=== PATIENT | female | born 1995 | race Caucasian/White ===

== ENCOUNTER 2018-05-21 07:30 | Inpatient (IN) | payer OTHER ==
[2018-05-21 08:43] VITALS: BMI 28.7
[2018-05-21] MEDS ORDERED: DINOPROSTONE 10 MG VAGINAL SUPPOSITORY VG ONE (09:00)
[2018-05-21 10:17] LABS: BASO % 0.3 % (0-2.0); EOS % 0.5 % (0-4.5); HEMATOCRIT 42.6 % (32.4-45.2); HEMOGLOBIN 14.8 GM/dL (10.7-15.3); LYMPH % 17.7 % (8-40); MCH 32.6 pg (25.7-33.7); MCHC 34.8 g/dl (32.0-36.0); MEAN CELL VOLUME 93.6 fl (80-96); MEAN PLT VOLUME 9.7 fl (7.5-11.1); MONO % 5.1 % (3.8-10.2); NEUT % 76.4 % (42.8-82.8); PLATELET COUNT 144 K/MM3 (134-434); RBC 4.55 M/mm3 (3.60-5.2); RDW 13.6 % (11.6-15.6); WHITE BLOOD COUNT 7.6 K/mm3 (4.0-10.0)
[2018-05-21 10:30] LABS: INR 0.9 (0.83-1.09); PROTHROMBIN TIME (PATIENT) 10.6 SEC (9.7-13.0)
[2018-05-21 10:32] LABS: ACTIVATED PTT 32.1 SECONDS (25.2-36.5)
[2018-05-21 10:44] LABS: ANION GAP 9 MMOL/L (8-16); BLOOD UREA NITROGEN 14 mg/dL (7-18); CALCIUM 8.8 mg/dL (8.5-10.1); CHLORIDE 105 mmol/L (98-107); CO2 21 mmol/L (21-32); CREATININE 0.6 mg/dL (0.55-1.3); GLUCOSE,RANDOM 77 mg/dL (74-106); POTASSIUM 3.8 mmol/L (3.5-5.1); SODIUM 136 mmol/L (136-145)
[2018-05-21] MEDS: DEXTROSE 5%-LACTATED RINGERS 1,000 ML IV SCH ×2 (14:30→22:30)
--- NOTE | 2018-05-21 17:48 | HP ---
Past Medical History - Primary Care Physician PCP:: Sandy Mandujano - Admission Chief Complaint: 23 yrs ga1P0, 41.2 wks admitted for induction of labor. sono ; 39 wks,SLIUP. bpp8/8 , vx, yanick 9.5, efw 8'2", fundal placenta History of Present Illness: PNC at [address] [place] [address] 34 lbs wt gain 1 st trimester, h/o pregn vomiting panel : 10/08/17 O Pos, Hbsag neg, Rpr nr, Hiv neg, rubella iimune, Varicella iimune, pap nilm, gc/ct neg , Hgb A1A2 , Sickle neg, h/h 13.8/40.3, plt 221 BV culture pos rx metrogel gel given 02/01/18 : 1 hr [id number], rpr nr, Quantiferon neg, h/h 12.8 /39.6, plt 202 04/26/18 GBS neg, Gc/ct neg, Hiv neg, h/h 13.9/41.7, [id number] serial sonogram done by [facility] for growth NT screen neg Afp neg 05/15/18 sono 40.3 wks, sliup, vx, yanick 12.9, , bpp 8/8, efw 7'9" 9 3420 gm), post placenta History Source: Patient, Medical Record - Past Medical History LPN HOME HEALTH: No: Migraine, Seizure Cardiovascular: No: HTN, Murmur Pulmonary: No: Asthma Hepatobiliary: No: Hepatitis B Renal/: No: UTI ...: 1 ...Para: 0 ...LMP: 07/29/17 ...EDC by Sono: 05/12/18 (41.2 weeks ) Heme/Onc: No: Anemia Infectious Disease: No: AIDS, HIV, STD's, Tuberculosis Psych: No: Addictions, Anxiety, Bipolar, Depression, Panic, Psychosis, Schizophrenia, Other Endocrine: No: Diabetes Mellitus, Hyperthyroidism, Hypothyroidism - Past Surgical History Past Surgical History: Yes: None Hx Myomectomy: No Hx Transabdominal Cerclage: No - Smoking History Smoking history: Never smoked Have you smoked in the past 12 months: No - Alcohol/Substance Use Hx Alcohol Use: No History of Substance Use: reports: None Home Medications - Allergies Allergies/Adverse Reactions: Allergies Allergy/AdvReac Type Severity Reaction Status Date / Time No Known Drug Allergies Allergy Verified 05/21/18 08:39 Physical Exam - Maternity Vital Signs: Vital Signs Temperature 98.1 F 05/21/18 14:00 Pulse Rate 81 05/21/18 17:00 Respiratory Rate 18 05/21/18 17:00 Blood Pressure 118/76 05/21/18 17:00 O2 Sat by Pulse Oximetry (%) Selected Entries 05/21/18 08:30 Temperature 98 F Pulse Rate 89 Blood Pressure 117/69 Weight 152 lb Constitutional: Yes: Well Nourished Eyes: Yes: WNL HENT: Yes: WNL, Normocephalic Neck: Yes: WNL Cardiovascular: Yes: WNL, Regular Rate and Rhythm Lungs: Clear to auscultation Breast(s): Yes: WNL - Abdominal Exam/OB Fundal Height: 40 Number of Fetuses: Single Presentation: Vertex Regularity: Irregular Intensity: Unaware Monitor Mode: External Heart Rate (range): 150 Heart Rate Location: [facility] Category: I Accelerations: Uniform - Vaginal Exam/OB Vaginal Bleediing: No Speculum Exam: No Dilatation (cm): close Effacement (%): 30 Amniotic Membrane Status: Intact Presentation: Vertex/Position (exam at 750 AM 05/21/18) Station: -3 - Physical Exam Musculoskeletal: Yes: WNL Extremities: Yes: WNL. No: Calf Tenderness Edema: LUE: Trace, RUE: Trace Deep Tendon Reflex Grade: Normal +2 Psychiatric: Yes: WNL - Labs Lab Results: CBC, BMP 05/21/18 09:44 05/21/18 09:44 Laboratory Tests 05/21/18 05/21/18 05/21/18 09:44 09:44 09:50 PT with INR 10.60 INR 0.90 PTT (Actin FS) 32.1 RPR Titer Nonreactive Blood Type Antibody Screen Negative 05/21/18 11:15 PT with INR INR PTT (Actin FS) RPR Titer Blood Type O POSITIVE Antibody Screen Problem List - Problems (1) Post term at 41 weeks gestation Code(s): O48.0 - POST-TERM ; Z3A.41 - 41 WEEKS GESTATION OF (2) Elective induction of labor planned Code(s): [id number] - Assessment/Plan 23 yrs 41.2 weeks ,gbs neg admitted for induction of labor . cervidil inserted at 7.50 AM 05/21/18 trial of vaginal delivery stadol = phenrgan for labor analgesia & or epidural labor analgesia
--- NOTE | 2018-05-21 20:13 | PN ---
Progress Note (short form) - Note Progress Note: 7.55 PM cervidil removed after 12 hrs . cx FT /50 %/vx _3/ DC ? uc 2-3 min , FHR cat -1 Selected Entries 05/21/18 05/21/18 18:00 19:00 Temperature 98.0 F Pulse Rate 67 88 Blood Pressure 116/68 118/66 Plan fleets enema shower If uc continue , may start pitocin augmentation . If UC stop or infrequent , may give PO cytotec Problem List - Problems (1) Post term at 41 weeks gestation Code(s): O48.0 - POST-TERM ; Z3A.41 - 41 WEEKS GESTATION OF (2) Elective induction of labor planned Code(s): [id number] -
[2018-05-21] MEDS ORDERED: SODIUM PHOSPHATE/NA BIPHOS 133 ML ENEMA PR ONE (20:22)
[2018-05-22] MEDS ORDERED: OXYTOCIN 30 UNITS in 0.9% NS 30 UNIT/500 ML INFUS.BAG IVPB ONE (05:13)
[2018-05-22] MEDS ORDERED: OXYTOCIN 30 UNITS in 0.9% NS 30 UNIT/500 ML INFUS.BAG IVPB SCH (06:00)
--- NOTE | 2018-05-22 06:15 | PN ---
Progress Note (short form) - Note Progress Note: 7.55 PM cervidil removed after 12 hrs . cx FT /50 %/vx _3/ MS ? uc 2-3 min , FHR cat -1 Selected Entries 05/21/18 05/21/18 18:00 19:00 Temperature 98.0 F Pulse Rate 67 88 Blood Pressure 116/68 118/66 Plan fleets enema shower If uc continue , may start pitocin augmentation . If UC stop or infrequent , may give PO cytotec Problem List - Problems (1) Post term at 41 weeks gestation Code(s): O48.0 - POST-TERM ; Z3A.41 - 41 WEEKS GESTATION OF (2) Elective induction of labor planned Code(s): EIB7003 -
--- NOTE | 2018-05-22 06:19 | PN ---
Progress Note (short form) - Note Progress Note: pt has been getting irregular UC 2-6 min , not well registered due to position . FHR 150-160 bpm 5.30AM pitocin augmentation is started 6.00AM 2 cm/60 %/vx/-3 Selected Entries 05/22/18 05:00 Temperature 98.3 F Pulse Rate 92 H Blood Pressure 96/53 L Imp : 41.3 weeks , s/p cervidil induction on Pitocin induction. still in Latent Labor Plan ; pt may ambulate with walking toco Problem List - Problems (1) Post term at 41 weeks gestation Code(s): O48.0 - POST-TERM ; Z3A.41 - 41 WEEKS GESTATION OF (2) Elective induction of labor planned Code(s): [id number] -
[2018-05-22] MEDS: DEXTROSE 5%-LACTATED RINGERS 1,000 ML IV SCH (06:31)
[2018-05-22] MEDS ORDERED: FENTANYL/BUPIVACAINE/NS/PF - PCEA - 50 ML DISP.SYRIN EP ONE ×3 (09:30→19:14)
[2018-05-22] MEDS: ELECTROLYTE-148 SOLN 1,000 ML IV SCH ×3 (09:30→18:47)
--- NOTE | 2018-05-22 09:36 | PN ---
Progress Note (short form) - Note Progress Note: 9.20 AM cx 3cm/80%/NH/vx-2/-3 fhr 150, cat-1 uc q2-3 min Selected Entries 05/22/18 05/22/18 08:00 09:00 Temperature 98.5 F Pulse Rate 93 H 105 H Blood Pressure 106/69 121/73 Plan epidural labor analgesia 1.20 PM Cx 4 cm/80%/vx-2 /-3 AROM blood tinge & meconium particles FHR 150 cat-1 UC 2-3 min -Pit 14ml/hr Selected Entries 05/22/18 05/22/18 13:00 13:15 Pulse Rate 94 H 90 Blood Pressure 97/56 L 99/[address] trial of labor Problem List - Problems (1) Post term at 41 weeks gestation Code(s): O48.0 - POST-TERM ; Z3A.41 - 41 WEEKS GESTATION OF (2) Elective induction of labor planned Code(s): [id number] -
[2018-05-22] MEDS ORDERED: BUPIVACAINE HCL/PF 0.25% (2.5MG/ML) 10 ML VIAL ONE (09:43)
[2018-05-22] MEDS ORDERED: NALOXONE HCL 0.4 MG/ML VIAL IVPUSH PRN (10:16)
[2018-05-22] MEDS ORDERED: FENTANYL/BUPIVACAINE/NS/PF - PCEA - 50 ML DISP.SYRIN EP SCH (10:30)
--- NOTE | 2018-05-22 15:45 | PN ---
Progress Note, Labor Vaginal Exam #1 Labor Exam Date: 05/22/18 Labor Exam Time: 15:40 Heart Rate (range): 150 Dilatation: 6 Effacement (%): 90 Amniotic Membrane Status: Ruptured Presentation: Vertex/Position Station: -1 (-1/-2) Remarks: fhr cat-1 uc q2 min pitocin 17ml/hr Selected Entries 05/22/18 15:00 Pulse Rate 92 H Blood Pressure 99/[address] trial of labor Vaginal Exam #2 Labor Exam Date: 05/22/18 Labor Exam Time: 05:40 Heart Rate (range): 150 Dilatation: 9 Effacement (%): 100 Amniotic Membrane Status: Ruptured Presentation: Vertex/Position Station: 0 (caput) Remarks: fhr cat-1 uc 2-3 min pitocin 17ml/hr Selected Entries 05/22/18 05/22/18 05/22/18 16:00 16:15 16:30 Temperature 98.1 F Pulse Rate 113 H 100 H 101 H Blood Pressure 97/70 93/64 101/72 05/22/18 05/22/18 05/22/18 16:45 17:00 17:15 Temperature Pulse Rate 99 H 106 H 103 H Blood Pressure 101/72 100/64 109/77 ct trial of labor Vaginal Exam #3 Labor Exam Date: 05/22/18 Labor Exam Time: 19:00 Heart Rate (range): 150 Dilatation: ant li Effacement (%): 100 Amniotic Membrane Status: Ruptured Presentation: Vertex/Position Station: +1 (+1/+2 caput) Remarks: fhr cat-1 , sometimes early decel uc q 2min pit 17ml/hr Selected Entries 05/22/18 05/22/18 05/22/18 18:00 18:15 18:30 Temperature 99.5 F Pulse Rate 104 H 97 H Blood Pressure 119/80 124/75 05/22/18 18:45 Temperature Pulse Rate 111 H Blood Pressure 105/72 Vaginal Exam #4 Labor Exam Date: 05/22/18 Labor Exam Time: 20:00 Heart Rate (range): 150-160 Dilatation: 10 Effacement (%): 100 Amniotic Membrane Status: Ruptured Presentation: Vertex/Position Station: +2 (caput) Remarks: fhr cat-1 uc 2 min pt encouraged to push Selected Entries 05/22/18 05/22/18 05/22/18 19:36 19:45 20:00 Temperature 99.5 F Pulse Rate 115 H 108 H Blood Pressure 111/76 130/95 Vaginal Exam #5 Labor Exam Date: 05/22/18 Labor Exam Time: 22:00 Heart Rate (range): 160-170 Dilatation: 10 Effacement (%): 100 Amniotic Membrane Status: Ruptured Presentation: Vertex/Position Station: +2 (large caput, mouding) Remarks: fhr cat-2 uc q 2min , pt is pushing I do not see descent more than +2 , caput large & moulding . position is malia since tachycardia 170 & above ,meconium brown color fluid is seen I explained the patient so stop trial of labor & delivery by primary c/section . Temp 99.6 Imp Failure of descent 2nd stage of labor & tachycardia plan delivery by primary c/sectiom
[2018-05-22] MEDS ORDERED: OXYTOCIN 20 UNITS in 0.9% NS 20 UNIT/1,000 ML INFUS.BAG IV ONE (19:00)
[2018-05-22] MEDS ORDERED: LIDOCAINE HCL 1% PRESERVATIVE FREE - 30ML VIAL ONE (19:00)
[2018-05-22] MEDS ORDERED: LIDO 2%/EPI 1:200000 PRESRVFRE (20 ML SDVIAL) ONE (22:03)
[2018-05-22] MEDS ORDERED: CITRIC ACID/SODIUM CITRATE 30 ML UNIT-DOSE CUP PO ONE (22:03)
[2018-05-22] MEDS ORDERED: morphine SULFATE/Preservative Free 0.5 MG/ML (1cc Syringe) ONE ×4 (22:15)
[2018-05-22] MEDS ORDERED: SODIUM CHLORIDE 0.9% P/F 10 ML VIAL IJ ONE (22:17)
[2018-05-22] MEDS ORDERED: ceFAZolin SODIUM 1 GM VIAL ONE (22:17)
[2018-05-22] MEDS ORDERED: KETOROLAC TROMETHAMINE 30 MG/1 ML VIAL ONE (22:18)
[2018-05-22] MEDS ORDERED: ePHEDrine SULFATE 50 MG/1 ML AMPULE ONE (22:19)
[2018-05-22] MEDS: OXYTOCIN 20 UNITS in 0.9% NS 20 UNIT/1,000 ML INFUS.BAG IV SCH (22:30)
[2018-05-22 22:57] LABS: URINE APPEARANCE CLOUDY; URINE BILIRUBIN NEGATIVE (<2.0 mg/dL); URINE COLOR AMBER; URINE GLUCOSE (UA) 1+ (NEGATIVE); URINE KETONE 1+ (NEGATIVE); URINE LEUK ESTERASE NEGATIVE (NEGATIVE); URINE NITRITE NEGATIVE (NEGATIVE); URINE PROTEIN 3+ (NEGATIVE); URINE UROBILINOGEN NEGATIVE mg/dL (0.2-1.0)
[2018-05-22 23:05] LABS: EPI CELLS RARE /HPF (FEW); URINE MUCUS RARE
[2018-05-22] MEDS ORDERED: ONDANSETRON 4 MG/2 ML VIAL IVPUSH PRN (23:15)
[2018-05-22] MEDS ORDERED: METHYLERGONOVINE MALEATE 0.2 MG/1 ML AMP IM PRN (23:37)
[2018-05-22] MEDS ORDERED: oxyCODONE HCL 5 MG TABLET PO PRN (23:40)
[2018-05-22] MEDS ORDERED: SENNOSIDES/DOCUSATE COMBO (SENNA PLUS) TABLET (UD) PO PRN (23:40)
--- NOTE | 2018-05-22 23:57 | PN ---
Delivery - Delivery Section: Primary, Low Flap Transverse (indication 41.3 weeks failure of descent 2nd stage labor, tachycardia) Type of Anesthesia: Epidural EBL (cc): 700 (webster output 400ml blood stained , ( even prior to c/section)) Delivery, Single - Stages of Labor Date 1st Stage Initiatied: 05/22/18 Time 1st Stage Initiated: 10:05 Date 2nd Stage Initiated: 05/22/18 Time 2nd Stage Initiated: 20:00 Date of Delivery: 05/22/18 Time of Delivery: 20:27 Time Placenta Delivered: 20:28 Placenta: Yes: Manual Removal, Uterine Exploration - Condition of Infant Tenoner Operator/Staff Scientist Present: Yes Name: Gely Pickard Infant Gender: Female Weight: 6 lb 15 oz Position: Left, OT Total Hours ROM (Hrs/Mins): 9HOURS/8MIN meconium unif - 1 Minute Total Score: 9 5 Minutes Total Score: 9 - Feeding Plan Initial Plan: Elected not to breastfeed exclusively throughout hospitalization Remarks - Remarks Remarks: 23 yrs , 41.2 weeks gbs neg, hospitalized for induction of labor 05/21/18. pnc at 2, [facility] 05/21/18 Cervidil insertion 05/22/18 Pitocin Augmentation epidural labor analgesia . prolonged latent phase & active phase of labor Intraop course uneventful Methergine 0.2mg im Iv Ancef 2gm prior to incision & Gentamicin 80 mg iv after delivery of baby uterine cultur, urine c/s taken
--- NOTE | 2018-05-23 00:05 | OP ---
Operative Note - Note: Operative Date: 05/22/18 Pre-Operative Diagnosis: 41.3 weeks, failure to descend , 2 nd stage of labor, Tachycardia Operation: Primary LFTC/Section Findings: 10.27 PM , Baby Girl , VX LOT position, 9/9, wt 6'15" , meconium uniformly stained ( brown ) color AFluid . Both Tubes & ovaries normal [employer] Bi Developer Dr Neeraj Hong in [place] Surgeon: Sandy Mandujano Party Plan Salesperson: Jerry Bautista Anesthesiologist/LIGHTNING PROTECTION INSTALLER: Jonathon Camacho Anesthesia: Epidural Specimens Removed: cord segment for cord blood gas. cord blood. placenta. utrine culture Estimated Blood Loss (mls): 700 Drains, Volume Out (mls): 400 (webster output, blood stained, urine clearing in the tube ) Fluid Volume Replaced (mls): 1,000 (iv 2 gm ancef & gentamicin 80 mg ) Operative Report Dictated: Yes
[2018-05-23] MEDS ORDERED: OXYTOCIN 20 UNITS in 0.9% NS 20 UNIT/1,000 ML INFUS.BAG IV ONE (00:24)
[2018-05-23] MEDS: OXYTOCIN 20 UNITS in 0.9% NS 20 UNIT/1,000 ML INFUS.BAG IV SCH (00:30)
[2018-05-23] MEDS: CEFAZOLIN 1 GM/D5W 1 GM/50 ML BAG IVPB SCH ×3 (02:21→17:54)
[2018-05-23] MEDS: IBUPROFEN 800 MG/8 ML IJ IVPB PRN ×2 (06:14→13:46)
[2018-05-23 07:19] LABS: BASO % 0.2 % (0-2.0); HEMATOCRIT 38.7 % (32.4-45.2); HEMOGLOBIN 13.2 GM/dL (10.7-15.3); LYMPH % 5.9 % (8-40); MCHC 34.1 g/dl (32.0-36.0); MEAN CELL VOLUME 93.7 fl (80-96); MEAN PLT VOLUME 9.2 fl (7.5-11.1); MONO % 4.7 % (3.8-10.2); NEUT % 89.2 % (42.8-82.8); PLATELET COUNT 118 K/MM3 (134-434); RBC 4.13 M/mm3 (3.60-5.2); RDW 13.4 % (11.6-15.6); WHITE BLOOD COUNT 16.6 K/mm3 (4.0-10.0)
--- NOTE | 2018-05-23 11:31 | PN ---
Progress Note (short form) - Note Progress Note: POD #1 - s/p under epidural anesthesia with duramorph. VSS. Pt. doing well, resting comfortably in bed. No complaints. Good pain control. No apparent anesthetic complications noted. Continue current care.
--- NOTE | 2018-05-23 11:43 | PN ---
Post Progress Note - Subjective Subjective: c/o pain at incision site, 4-5/10 pt feels hungry webster draining , jalen color urine Post Day: 1 Type of Delivery: Primary C/S Vital Signs: Vital Signs Temperature 98.3 F 05/23/18 05:53 Pulse Rate 94 H 05/23/18 05:53 Respiratory Rate 20 05/23/18 05:54 Blood Pressure 103/54 L 05/23/18 05:53 O2 Sat by Pulse Oximetry (%) 100 05/22/18 20:00 Breast Exam: Yes: Soft, Other (bf attempting ). No: Engorged Uterus: Yes: Fundus Firm, Fundus below umbilicus, Non-tender Incision: Yes: Dressing dry and intact. No: Redness, Oozing Abdomen/GI: Yes: Abdomen soft (bs active ), Tolerating PO (clear fluids ). No: Abdominal Distention, Tender, Passing flatus Lochia: Yes: Rubra Lochia, amount: Moderate Extremities: Yes: Calves non-tender Perineum: Yes: Intact Activity: Other (scd in situ, webster in situ, not oob yet ) - Labs Labs: CBC WBC 16.6 K/mm3 (4.0-10.0) H 05/23/18 06:30 RBC 4.13 M/mm3 (3.60-5.2) 05/23/18 06:30 Hgb 13.2 GM/dL (10.7-15.3) 05/23/18 06:30 Hct 38.7 % (32.4-45.2) 05/23/18 06:30 MCV 93.7 fl (80-96) 05/23/18 06:30 MCH 32.0 pg (25.7-33.7) 05/23/18 06:30 MCHC 34.1 g/dl (32.0-36.0) 05/23/18 06:30 RDW 13.4 % (11.6-15.6) 05/23/18 06:30 Plt Count 118 K/MM3 (134-434) L 05/23/18 06:30 MPV 9.2 fl (7.5-11.1) 05/23/18 06:30 Absolute Neuts (auto) 14.8 K/mm3 (1.5-8.0) H 05/23/18 06:30 Neutrophils % 89.2 % (42.8-82.8) H 05/23/18 06:30 Lymphocytes % 5.9 % (8-40) L D 05/23/18 06:30 Monocytes % 4.7 % (3.8-10.2) 05/23/18 06:30 Eosinophils % 0.0 % (0-4.5) D 05/23/18 06:30 Basophils % 0.2 % (0-2.0) 05/23/18 06:30 Nucleated RBC % 0 % (0-0) 05/23/18 06:30 uterine & urine cultures pending Other Findings, Remarks: i/o 9700/1087 RS CTA Problem List - Problems (1) Post term at 41 weeks gestation Code(s): O48.0 - POST-TERM ; Z3A.41 - 41 WEEKS GESTATION OF (2) Elective induction of labor planned Code(s): [id number] - (3) Failure of descent in labor, delivered, current hospitalization Code(s): O62.2 - OTHER UTERINE INERTIA (4) tachycardia, delivered, current hospitalization Code(s): O76 - ABNLT IN HEART RATE AND RHYTHM COMP LABOR AND DELIVERY (5) Meconium in amniotic fluid affecting management of mother Code(s): O36.8990 - MATERNAL CARE FOR OTH PROBLEMS, UNSP TRIMESTER, UNSP Qualifiers: Trimester: third trimester (6) delivery due to maternal disorder, delivered, current hospitalization Code(s): O99.89 - OTH DISEASES AND CONDITIONS COMPL PREG/CHLDBRTH (7) Encounter for care and examination after delivery Code(s): Z39.2 - ENCOUNTER FOR ROUTINE FOLLOW-UP Assessment/Plan stable, afebrile Plan ct po care encourage ambulation , po fluids & deep breathing
[2018-05-23] MEDS ORDERED: ENOXAPARIN NA (PORCINE) 40 MG/0.4 ML DISP.SYRIN SQ ONE (11:55)
[2018-05-23] MEDS: oxyCODONE HCL 5 MG TABLET PO PRN (16:11)
[2018-05-23] MEDS: SIMETHICONE 80 MG TAB.CHEW (FP) PO PRN (16:12)
[2018-05-23] MEDS: ACETAMINOPHEN 325 MG TABLET (FP) PO PRN (16:13)
[2018-05-23] MEDS ORDERED: BISACODYL 10 MG SUPP.RECT RC PRN (23:37)
[2018-05-24] MEDS: ACETAMINOPHEN 325 MG TABLET (FP) PO PRN ×3 (03:25→14:59)
[2018-05-24] MEDS: oxyCODONE HCL 5 MG TABLET PO PRN ×3 (03:25→14:58)
[2018-05-24] MEDS: SIMETHICONE 80 MG TAB.CHEW (FP) PO PRN ×3 (03:25→15:00)
--- NOTE | 2018-05-24 07:12 | PN ---
Progress Note (short form) - Note Progress Note: pod 2 s/p c/s ,doing well, passing gas, ambulating CBC, BMP 05/23/18 06:30 05/21/18 09:44 Last Vital Signs Temp Pulse Resp BP Pulse Ox 97.7 F 80 20 94/50 L 100 05/23/18 21:00 05/23/18 21:00 05/23/18 21:00 05/23/18 21:00 05/22/18 20:00 abdomen soft, no distension, no cva incision dry, clean no calf tenderness lochia mild plan ambulate, pain management cbc in am
[2018-05-24] MEDS: FERROUS SO4 325 MG TABLET (FP) PO SCH ×2 (11:22→23:59)
[2018-05-24] MEDS: PRENATAL VITAMINS W/ FOLIC ACID TABLET (FP) PO SCH (11:22)
[2018-05-24] MEDS: ENOXAPARIN NA (PORCINE) 40 MG/0.4 ML DISP.SYRIN SQ SCH (11:22)
[2018-05-25 07:27] LABS: BASO % 0.3 % (0-2.0); EOS % 0.7 % (0-4.5); HEMATOCRIT 35.5 % (32.4-45.2); HEMOGLOBIN 12.1 GM/dL (10.7-15.3); LYMPH % 15.7 % (8-40); MCHC 34.2 g/dl (32.0-36.0); MEAN CELL VOLUME 93.6 fl (80-96); MEAN PLT VOLUME 8.5 fl (7.5-11.1); MONO % 4.1 % (3.8-10.2); NEUT % 79.2 % (42.8-82.8); PLATELET COUNT 152 K/MM3 (134-434); RBC 3.79 M/mm3 (3.60-5.2); RDW 13.4 % (11.6-15.6); WHITE BLOOD COUNT 9.5 K/mm3 (4.0-10.0)
[2018-05-25] MEDS: IBUPROFEN 600 MG TABLET (FP) PO PRN ×2 (08:09→19:31)
[2018-05-25] MEDS: ACETAMINOPHEN 325 MG TABLET (FP) PO PRN ×2 (08:10→19:31)
[2018-05-25] MEDS: SIMETHICONE 80 MG TAB.CHEW (FP) PO PRN ×2 (08:11→19:31)
[2018-05-25] MEDS: ENOXAPARIN NA (PORCINE) 40 MG/0.4 ML DISP.SYRIN SQ SCH (10:25)
[2018-05-25] MEDS: PRENATAL VITAMINS W/ FOLIC ACID TABLET (FP) PO SCH (10:25)
[2018-05-25] MEDS: FERROUS SO4 325 MG TABLET (FP) PO SCH ×2 (10:25→22:02)
--- NOTE | 2018-05-25 11:07 | PN ---
Post Progress Note Post Day: 3 Type of Delivery: Primary C/S Vital Signs: Vital Signs Temperature 98.2 F 05/25/18 08:00 Pulse Rate 80 05/25/18 08:00 Respiratory Rate 20 05/25/18 08:00 Blood Pressure 111/69 05/25/18 08:00 O2 Sat by Pulse Oximetry (%) 100 05/22/18 20:00 Uterus: Yes: Fundus Firm Incision: Yes: Holt intact Abdomen/GI: Yes: Abdomen soft, Tolerating PO Lochia: Yes: Rubra Lochia, amount: Small Extremities: Yes: Calves non-tender Activity: Ambulating - Labs Labs: CBC WBC 9.5 K/mm3 (4.0-10.0) 05/25/18 07:00 RBC 3.79 M/mm3 (3.60-5.2) 05/25/18 07:00 Hgb 12.1 GM/dL (10.7-15.3) 05/25/18 07:00 Hct 35.5 % (32.4-45.2) 05/25/18 07:00 MCV 93.6 fl (80-96) 05/25/18 07:00 MCH 32.0 pg (25.7-33.7) 05/25/18 07:00 MCHC 34.2 g/dl (32.0-36.0) 05/25/18 07:00 RDW 13.4 % (11.6-15.6) 05/25/18 07:00 Plt Count 152 K/MM3 (134-434) D 05/25/18 07:00 MPV 8.5 fl (7.5-11.1) 05/25/18 07:00 Absolute Neuts (auto) 7.6 K/mm3 (1.5-8.0) 05/25/18 07:00 Neutrophils % 79.2 % (42.8-82.8) 05/25/18 07:00 Lymphocytes % 15.7 % (8-40) D 05/25/18 07:00 Monocytes % 4.1 % (3.8-10.2) 05/25/18 07:00 Eosinophils % 0.7 % (0-4.5) D 05/25/18 07:00 Basophils % 0.3 % (0-2.0) 05/25/18 07:00 Nucleated RBC % 0 % (0-0) 05/25/18 07:00 Assessment/Plan Status post primary Stable Continue routine post op care
--- NOTE | 2018-05-26 07:52 | DS ---
Physical Exam-SOUND PRINTER Vital Signs: Vital Signs Temperature 98.2 F 05/25/18 22:00 Pulse Rate 77 05/25/18 22:00 Respiratory Rate 18 05/25/18 22:00 Blood Pressure 101/53 L 05/25/18 22:00 O2 Sat by Pulse Oximetry (%) 100 05/22/18 20:00 Constitutional: Yes: Well Nourished Eyes: Yes: Conjunctiva Clear HENT: Yes: Atraumatic Neck: Yes: Supple Cardiovascular: Yes: Regular Rate and Rhythm Respiratory: Yes: Regular Gastrointestinal: Yes: Normal Bowel Sounds External Genitalia: Yes: Normal Uterus: Yes: Firm Wound/Incision: Yes: Clean/Dry, Well Approximated Neurological: Yes: Alert, Oriented ...Motor Strength: WNL Psychiatric: Yes: Alert, Oriented Labs: CBC, BMP 05/25/18 07:00 05/21/18 09:44 Delivery - Delivery Section: Primary, Low Flap Transverse (indication 41.3 weeks failure of descent 2nd stage labor, tachycardia) Type of Anesthesia: Epidural EBL (cc): 700 (webster output 400ml blood stained , ( even prior to c/section)) Delivery, Single - Stages of Labor Date 1st Stage Initiatied: 05/22/18 Time 1st Stage Initiated: 10:05 Date 2nd Stage Initiated: 05/22/18 Time 2nd Stage Initiated: 20:00 Date of Delivery: 05/22/18 Time of Delivery: 20:27 Time Placenta Delivered: 20:28 Placenta: Yes: Manual Removal, Uterine Exploration - Condition of Motor Setter/Tour Guide Present: Yes Name: Gely Pickard Gender: Female Weight: 6 lb 15 oz Position: Left, OT Total Hours ROM (Hrs/Mins): 9HOURS/8MIN meconium unif - 1 Minute Total Score: 9 5 Minutes Total Score: 9 - [place] Feeding Plan Initial Plan: Elected not to breastfeed exclusively throughout hospitalization Discharge Summary Reason For Visit: CERVIDIL INDUCTION Current Active Problems delivery due to maternal disorder, delivered, current hospitalization ( Acute) Elective induction of labor planned (Acute) Encounter for care and examination after delivery (Acute) Failure of descent in labor, delivered, current hospitalization (Acute) tachycardia, delivered, current hospitalization (Acute) Meconium in amniotic fluid affecting management of mother (Acute) Post term at 41 weeks gestation (Acute) Procedures: Principal: delivery Hospital Course: Routine post op care Condition: Stable - Instructions Diet, Activity, Other Instructions: Post Instructions DIET: Continue good diet high in protein, calcium, and iron rich foods. Drink at least eight (8) glasses of water daily in addition to other fluids. ct Regular diet MEDICATIONS: Continue vitamins and iron as previously directed. Motrin and Tylenol may be taken for minor discomfort. ACTIVITY: Mild to moderate exercise may be started in two (2) weeks. Take frequent rest periods. Resume normal activity after six (6) week check up. WOUND CARE OF OPERATIVE SITE: Continue use of perineal bottle until vaginal discharge stops. Keep area clean. Shower daily. Keep abdominal wound dry. Report any drainage or redness to physician. Tub baths, tampons and douches are not permitted for [address] Breast feeding & Bottle feeding BREAST CARE: (For those that are not ): If engorgement occurs: Wear tight fitting bra. Take Tylenol or Motrin for pain. Apply cold packs (ice in bags to each breast ) FAMILY PLANNING: There are many control alternatives to pursue and they should be discussed at your first office visit. You may resume sexual activity after your six (6) week check up. (Remember, breast feeding is not a contraceptive) NEXT PHYSICIAN APPOINTMENT: Be certain to call for a one (1) week appointment, unless otherwise directed. 05/28/18 on Sunday for wound check Call Clinic or got to Emergency Dept if you have any of the following: Heavy vaginal bleeding Painful urination Leg pain Unusual odor noted to vaginal bleeding High fever Red streaking noted on breast Referrals: Sandy Mandujano MD [Staff Physician] - Disposition: HOME - Home Medications Comprehensive Discharge Medication List: Ambulatory Orders Vitamins (Sjr) - 1 tab PO DAILY 05/21/18 Acetaminophen [Tylenol .Regular Strength -] 500 mg PO Q4H PRN #30 tablet Ibuprofen [Motrin -] 600 mg PO Q4H PRN #30 tablet 05/24/18 Vitamins (Sjr) - 1 tab PO DAILY #60 tablet 05/24/18
[2018-05-26 08:56] VITALS: BP 110/71; PULSE 92; TEMP 98.6
[2018-05-26] MEDS: FERROUS SO4 325 MG TABLET (FP) PO SCH (09:22)
[2018-05-26] MEDS: PRENATAL VITAMINS W/ FOLIC ACID TABLET (FP) PO SCH (09:22)
[2018-05-26] MEDS: ENOXAPARIN NA (PORCINE) 40 MG/0.4 ML DISP.SYRIN SQ SCH (09:22)
[2018-05-26] MEDS: IBUPROFEN 600 MG TABLET (FP) PO PRN (09:32)
[2018-05-26] MEDS: SIMETHICONE 80 MG TAB.CHEW (FP) PO PRN (09:33)
[2018-05-26] MEDS: ACETAMINOPHEN 325 MG TABLET (FP) PO PRN (09:33)
--- NOTE | 2018-05-29 12:18 | OP ---
DATE OF OPERATION: 05/22/2018 PREOPERATIVE DIAGNOSIS: A 41.3 week, failure to descend in the 2nd stage of labor, and features of tachycardia. POSTOPERATIVE DIAGNOSIS: A 41.3 week, failure to descend in the 2nd stage of labor, and features of tachycardia. OPERATION: Primary low transverse section. SURGEON: Sandy Mandujano MD MATERIALS TECH: BROOKE Mccray ANESTHESIOLOGIST: JIGNESH Krueger STRUCTURAL STEEL ERECTOR: Gely Pickard DO ANESTHESIA: Epidural. FINDINGS: This is a 23-year-old, 41.2 weeks hospitalized on May 20, 2018. Cervidil induction done followed by Pitocin. The patient had prolonged latencies and protracted active phase of labor. She was fully dilated for more than 2 hours, pushing. We found stained meconium in the fluid. tachycardia at about 170 to 180. No more descent was noted after the pushing session. Large caput and molding was noted. It was decided to deliver by section. PROCEDURE: Patient was taken to the operating room table and Pugh catheter was placed. The abdomen was shaved and prepped. Epidural anesthesia was continued as the operative anesthesia. Patient was then placed in the supine position. SCD stockings were in situ. Abdomen was painted and draped in the usual manner. Pfannenstiel incision was made and the skin and subcutaneous tissue were entered. The fascia was incised transversely. Bleeding points were clamped and cauterized. Rectus muscle was from the rectus sheath. Parietal peritoneum was opened Bladder peritoneum was incised transversely and the lower uterine segment was isolated and incised transversely. Amniotic fluid was uniformly meconium stained. The baby was deep to the pelvic cavity, but was brought up from the ELOY position. Delivered at 10:27 p.m. Immediate oral and nasal suction was done. Cord was clamped. The baby was handed over to the software tester. Apgars were 9 and 9. Baby's weight was 6 pounds 15 ounces. Cord segment was given for the cord blood gas. Cord blood was collected. Placenta was removed completely with membranes. The uterine cavity was cleaned. Anesthesiologist was asked to give 0.25 mg of Methergine to improve the uterine tonicity. The uterine incision was closed in 2 layers, first layer was a continuous intermittent locking with Biosyn 0 suture , and the second was a vertical mattress suture. Bladder peritoneum was closed with Biosyn 0 suture. Both tubes and ovaries were normal. Sponge and instrument count was correct. Irrigation was done and closure of the abdomen was done. Parietal peritoneum was closed with 0 Vicryl suture. The muscle was then reapproximated together with 0 Vicryl interrupted sutures and the anterior rectus sheath was closed with 0 Vicryl suture. Before closure of the anterior rectus sheath, hemostasis was noted. The rectus sheath was then closed with 0 Vicryl suture. Continuous sutures were taken in the rectus sheath. The subcutaneous tissue hemostasis was then verified. The subcutaneous tissue had interrupted sutures taken with Vicryl 2-0 suture and the skin was approximated with irene. Pressure dressing was given. The blood clots were removed from the vagina. Urine output was 400 mL, but the urine was blood stained, but in the tube it was clear. The urine was blood stained prior to starting the section. IV Ancef 2 g prior to the incision was given and after delivery of the baby 80 mg of gentamicin also was given. After immediately making an incision on the uterus, the uterine culture was taken and sent. Patient tolerated the procedure well and was transferred to the recovery room in stable condition. Nathalia [id number] MTDD
--- NOTE | 2018-06-07 16:20 | PATH ---
Surgical Pathology Report Patient Name: AYDIN HARRIS [facility]. Rec. #: [id number] /Age/Gender: 1995 (Age: 23) / F Account: [id number] Location: [facility] OBS/CELLULAR BIOLOGIST Taken: 05/22/2018 Received: 05/23/2018 Reported: 06/07/2018 Physicians: Sandy Mandujano M.D. Specimen(s) Received PLACENTA Clinical History , 41.2 weeks, failure to descend, tachycardia Final Diagnosis PLACENTA: THIRD TRIMESTER PLACENTA. TRIVASCULAR CORD. MEMBRANES WITH NO DIAGNOSTIC ABNORMALITIES. Electronically Signed Ute Quintanilla M.D. Gross Description The specimen is received fresh labeled placenta and is a 493 gram, 17.5 x 15.0 x 3.8 cm. placenta with attached membranes and umbilical cord. The attached membranes are cheema, translucent with opacities and insert marginally. The umbilical cord measures 17 cm. in length and averages 1.2 cm. in diameter. The cord inserts centrally. No true knots or strictures are identified. Cut surface of the umbilical cord reveals 3 vessels. The surface is henry-blue with minimal fibrin deposition and appropriate caliber vessels. The maternal surface is red-brown with focal defects. Sectioning reveals red-brown, spongy parenchyma. No lesions are identified. [employer] sections are submitted in three cassettes as follows: 1- membrane rolls and umbilical cord; 2-3- full thickness sections of placenta. /06/06/2018 [facility]06/06/2018
== END 2018-05-26 13:00 | disposition home or self-care (01) | DRG 540 ==
LOC: JLDR 07:30 → J3W 05-23 01:01
PROVIDERS: ADMIT Obstetrics & Gynecology; ATTEND Obstetrics & Gynecology
PROC: 3E0P7VZ Introduction of Hormone into Female Reproductive, Via Natural or Artificial Opening (ICD-10-PCS; 2018-05-21)
PROC: 10D00Z1 Extraction of Products of Conception, Low, Open Approach (ICD-10-PCS; principal; 2018-05-22)
DX: O48.0 Post-term pregnancy (principal); Z3A.41 41 weeks gestation of pregnancy; O62.0 Primary inadequate contractions; O77.0 Labor and delivery complicated by meconium in amniotic fluid; O76 Abnormality in fetal heart rate and rhythm complicating labor and delivery; Z37.0 Single live birth
CPT/HCPCS: 36415; 80048; 81003; 81015; 85025; 85610; 85730; 86593; 86850; 86900; 86901; 87070; 87086; 87186; 87205; 88307-TC